=== PATIENT | female | born 1935 | race Caucasian/White ===

== ENCOUNTER 2017-02-23 12:57 | Inpatient (IN) | payer MEDICARE ==
[2017-02-23] MEDS ORDERED: Zofran 4 MG/2 ML VIAL IV PRN (14:46)
[2017-02-23] MEDS ORDERED: Sodium Chloride 0.9% 1000 ML 1,000 ML IV SCH (15:00)
[2017-02-23] MEDS: ROCEPHIN 1 Gm-D5w 50 ml Bag** 1 G/50 ML IVPB IV SCH (15:10)
[2017-02-23] MEDS: Zithromax 500 MG/ 250 ML NaCl Premix 500 MG/250 ML IVPB IV SCH (15:11)
[2017-02-23] MEDS: DUONEB 0.5-3 MG/3 ml Neb IH SCH ×3 (15:11→23:01)
[2017-02-23 15:33] LABS: BASOPHIL % 0.1 % (0.0-0.4); Eosinophil % 0.1 % (0.00-5.0); Granulocytes % 88.5 % (36.0-66.0); Lymphocytes % 5.6 % (24.0-44.0); Mean Cell Volume 87.1 fl (78-100); Mean Corpuscular Hemoglobin 27.7 pg (26-32); Mean Platelet Volume 12.9 fl (6-9.5); Monocytes % 5.7 % (0.0-12.0); Platelet Count 213 K/mm3 (150-450); Red Blood Count 4.11 M/mm3 (4.1-5.4); Red Cell Distribution Width 16.3 % (11.5-14.0)
[2017-02-23 15:35] LABS: INR 2.81 (0.8-3.0); PROTIME 31.6 SECONDS (9.95-12.35)
[2017-02-23 15:49] LABS: ALBUMIN 3.1 g/dL (3.4-5.0); ANION GAP 13.7 MEQ/L (5-15); BILIRUBIN,TOTAL 0.6 mg/dL (0.2-1.0); Carbon Dioxide 26.4 mEq/L (21-32); Total Protein 5.9 gm/dL (6.4-8.2)
--- NOTE | 2017-02-23 16:14 | XRAY ---
Indication: Fever and cough. Comparison: August 26, 2016. Portable chest again demonstrates CABG surgery with borderline cardiomegaly, central vascular prominence, and tiny left base effusion concerning for mild/early cardiac decompensation. Superimposed pneumonia not completely excluded.
[2017-02-23] MEDS: solu-MEDROL 125 MG IV SCH (17:46)
[2017-02-23] MEDS: Zocor 10MG PO SCH (21:23)
[2017-02-23] MEDS: TYLENOL 325 MG PO PRN (21:47)
[2017-02-24] MEDS: solu-MEDROL 125 MG IV SCH (02:48)
[2017-02-24] MEDS: DUONEB 0.5-3 MG/3 ml Neb IH SCH ×6 (03:01→22:55)
[2017-02-24 05:55] LABS: Mean Cell Volume 87.3 fl (78-100); Mean Corpuscular Hemoglobin 27.4 pg (26-32); Mean Platelet Volume 12.4 fl (6-9.5); Platelet Count 175 K/mm3 (150-450); Red Blood Count 3.79 M/mm3 (4.1-5.4); Red Cell Distribution Width 16.5 % (11.5-14.0); White Blood Count 10.7 K/mm3 (4.0-10.5)
[2017-02-24 06:22] LABS: ALBUMIN 2.9 g/dL (3.4-5.0); ANION GAP 16.1 MEQ/L (5-15); BILIRUBIN,TOTAL 0.3 mg/dL (0.2-1.0); Carbon Dioxide 24.3 mEq/L (21-32); Potassium 3.2 mEq/L (3.5-5.1); Total Protein 6.3 gm/dL (6.4-8.2)
[2017-02-24 06:24] LABS: INR 2.77 (0.8-3.0); PROTIME 31.1 SECONDS (9.95-12.35)
[2017-02-24 07:10] LABS: BAND 3 % (0.0-2.0); Eosinophil 1 % (0.00-3.0); Total Cells Counted 100
[2017-02-24 07:12] LABS: ANISOCYTOSIS 1+; Hypochromia 1+; Platelet Estimate NORMAL (NORMAL)
--- NOTE | 2017-02-24 08:23 | PCM.HP ---
History of Present Illness - Chief Complaint Chief Complaint: acute respiratory failure Date: 02/24/17 History of Present Illness: is a 81 year old female. who lives at [facility] and suffers from dementia, copd and has recurrent pneumonia. She was at [facility] yesterday and became acutely dyspneic and more confused fever to 101.4 and pulse ox in the low 80's on her regular O2. She was having significant wheezing no alleviated with nebulizer treatment. With her ams and rapid worsening she was sent for direct admission to the hospital last night started on antibiotics and steroids and nebs and seems to be improving this am. She is still more confused compared to baseline but denies current complaints. No chest pain or nausea. - Review of Systems Constitutional: Fatigue, No Fever, No Chills Eyes: No Symptoms Ears, Nose, & Throat: No Symptoms Respiratory: Cough, Short Of Breath Cardiac: No Chest Pain, No Edema, No Syncope Abdominal/Gastrointestinal: No Abdominal Pain, No Nausea, No Vomiting, No Diarrhea Genitourinary Symptoms: No Dysuria Musculoskeletal: No Back Pain, No Neck Pain Skin: No Rash Neurological: No Dizziness, No Focal Weakness, No Sensory Changes Psychological: No Symptoms Endocrine: No Symptoms Hematologic/Lymphatic: No Symptoms Immunological/Allergic: No Symptoms Medications & Allergies Home Medications: Home Medication List Aspirin 81 mg PO DAILY 08/26/16 [History Confirmed 02/23/17] Atorvastatin Calcium [Lipitor] 10 mg PO DAILY 08/26/16 [History Confirmed ] Calcium Carbonate [Calcium] 1,500 mg PO DAILY 08/26/16 [History Confirmed ] Ferrous Sulfate 325 mg [Feosol 325 mg] 325 mg PO DAILY 08/26/16 [History Confirmed 02/23/17] Omeprazole [Prilosec] 40 mg PO DAILY 08/26/16 [History Confirmed 02/23/17] Paroxetine HCl 20 mg PO DAILY 08/26/16 [History Confirmed 02/23/17] Polyethylene Glycol 3350 [Miralax] 17 gm PO DAILY 08/26/16 [History Confirmed ] Pyridoxine HCl 100 mg [Vitamin B-6 (Pyridoxine) 100 MG] 100 mg PO DAILY [History Confirmed 02/23/17] Warfarin Sodium 2 mg [Coumadin 2 MG] 2 mg PO DAILY #0 tablet 08/30/16 [Rx Confirmed 02/23/17] Amlodipine Besylate 2.5 mg PO DAILY 02/23/17 [History Confirmed 02/23/17] Warfarin Sodium 1 mg [Coumadin 1 MG] 1 mg PO UD 02/23/17 [History Confirmed 02/23/17] Allergies/Adverse Reactions: Allergies Allergy/AdvReac Type Severity Reaction Status Date / Time codeine Allergy Verified 02/23/17 14:40 - Past Medical History Past Medical History: Yes Neurological History: Dementia, Stroke ENT History: Cataracts Cardiac History: Arrhythmia, Hypertension Respiratory History: Pneumonia Endocrine Medical History: No Pertinent History Musculoskelatal History: No Pertinent History GI Medical History: GERD History: Renal Disease, Other Pyscho-Social History: Anxiety, Depression Reproductive Disorders: No Pertinent History Comment: Per daughter - Female History Are you now?: No - Past Surgical History Past Surgical History: No (unknown not listed in report) Neuro Surgical History: No Pertinent History Cardiac History: CABG Respiratory Surgery: No Pertinent History GI Surgical History: No Pertinent History Genitourinary Surgical Hx: No Pertinent History Musculskeletal Surgical Hx: No Pertinent History Female Surgical History: No Pertinent History Other Surgical History: Left carotid sx - Social History Smoking Status: Former smoker Exposure to second hand smoke: No Alcohol: None Drug Use: none - Physical Exam Vital Signs: Vital Signs - 24 hr Temp Pulse Resp BP Pulse Ox 02/24/17 06:43 68 18 92 L 02/24/17 04:59 96.9 F 65 20 110/54 91 L 02/24/17 04:00 16 02/24/17 03:03 82 20 92 L 02/24/17 00:31 97.7 F 65 14 111/56 96 02/24/17 00:00 18 02/23/17 23:03 88 18 95 02/23/17 20:00 98.5 F 70 18 133/60 93 L 02/23/17 19:00 78 20 94 L 02/23/17 15:14 63 22 93 L 02/23/17 14:13 98.2 F 60 20 107/53 96 02/23/17 14:04 98.2 F 60 20 107/53 98 Oxygen-Last 24 hours O2 Percentage 3 Liters = 32% O2 Percentage 2 Liters = 28% O2 Percentage 2 Liters = 28% Oxygen Flowrate (L/min)-RT 2 General Appearance: no apparent distress, alert Neurologic Exam: alert, oriented x 3, cooperative, normal mood/affect, nml cerebellar function, nml station & gait, sensation nml, No motor deficits Eye Exam: PERRL/EOMI, eyes nml inspection Ears, Nose, Throat Exam: normal ENT inspection, TMs normal, pharynx normal, moist mucous membranes Neck Exam: normal inspection, non-tender, supple, full range of motion Respiratory Exam: wheezing, No respiratory distress Cardiovascular Exam: regular rate/rhythm, normal peripheral pulses, murmur Gastrointestinal/Abdomen Exam: soft, normal bowel sounds, No tenderness, No mass Back Exam: normal inspection, normal range of motion, No CVA tenderness, No vertebral tenderness Extremity Exam: normal inspection, normal range of motion, pelvis stable Skin Exam: normal color, warm, dry, No rash Lymphatic Exam: No adenopathy Results - Labs Lab/Micro Results: Lab Results-Last 24 Hours 02/23/17 02/23/17 02/23/17 Range/Units 14:20 14:20 14:20 WBC 15.0 H (4.0-10.5) K/mm3 RBC 4.11 (4.1-5.4) M/mm3 Hgb 11.4 L (12.0-16.0) gm/dl Hct 35.8 (35-47) % MCV 87.1 (78-100) fl MCH 27.7 (26-32) pg MCHC 31.8 L (32-36) g/dl RDW 16.3 H (11.5-14.0) % Plt Count 213 (150-450) K/mm3 MPV 12.9 H (6-9.5) fl Gran % 88.5 H (36.0-66.0) % Lymphocytes % 5.6 L (24.0-44.0) % Monocytes % 5.7 (0.0-12.0) % Eosinophils % 0.1 (0.00-5.0) % Basophils % 0.1 (0.0-0.4) % Segmented Neutrophils (36.0-66.0) % Band Neutrophils (0.0-2.0) % Lymphocytes (Manual) (24-44) % Eosinophils (Manual) (0.00-3.0) % Basophils # 0.02 (0-0.4) Differential Comment Platelet Estimate (NORMAL) Hypochromasia Anisocytosis INR 2.81 (0.8-3.0) Sodium 141 (136-145) mEq/L Potassium 4.0 (3.5-5.1) mEq/L Chloride 105 (98-107) mEq/L Carbon Dioxide 26.4 (21-32) mEq/L Anion Gap 13.7 (5-15) MEQ/L BUN 23 H (9-20) mg/dL Creatinine 1.23 (0.55-1.30) mg/dl Estimated GFR 44 ML/MIN Glucose 108 (70-110) MG/DL Calcium 8.5 (8.5-10.1) mg/dL Total Bilirubin 0.60 (0.2-1.0) mg/dL AST 17 (15-37) U/L ALT 15 (12-78) U/L Alkaline Phosphatase 88 (46-116) U/L NT-Pro-B Natriuret Pep 5488 H (0-450) pg/ml Serum Total Protein 5.9 L (6.4-8.2) gm/dL Albumin 3.1 L (3.4-5.0) g/dL Prealbumin (18.0-35.7) mg/dL 02/23/17 02/24/17 02/24/17 Range/Units 16:00 05:46 05:46 WBC 10.7 H (4.0-10.5) K/mm3 RBC 3.79 L (4.1-5.4) M/mm3 Hgb 10.4 L (12.0-16.0) gm/dl Hct 33.1 L (35-47) % MCV 87.3 (78-100) fl MCH 27.4 (26-32) pg MCHC 31.4 L (32-36) g/dl RDW 16.5 H (11.5-14.0) % Plt Count 175 (150-450) K/mm3 MPV 12.4 H (6-9.5) fl Gran % (36.0-66.0) % Lymphocytes % (24.0-44.0) % Monocytes % (0.0-12.0) % Eosinophils % (0.00-5.0) % Basophils % (0.0-0.4) % Segmented Neutrophils 93 H (36.0-66.0) % Band Neutrophils 3 H (0.0-2.0) % Lymphocytes (Manual) 3 L (24-44) % Eosinophils (Manual) 1 (0.00-3.0) % Basophils # (0-0.4) Differential Comment ABNORMAL Platelet Estimate NORMAL (NORMAL) Hypochromasia 1+ Anisocytosis 1+ INR (0.8-3.0) Sodium 142 (136-145) mEq/L Potassium 3.2 L (3.5-5.1) mEq/L Chloride 105 (98-107) mEq/L Carbon Dioxide 24.3 (21-32) mEq/L Anion Gap 16.1 H (5-15) MEQ/L BUN 31 H (9-20) mg/dL Creatinine 1.46 H (0.55-1.30) mg/dl Estimated GFR 36 ML/MIN Glucose 196 H (70-110) MG/DL Calcium 8.6 (8.5-10.1) mg/dL Total Bilirubin 0.30 (0.2-1.0) mg/dL AST 15 (15-37) U/L ALT 13 (12-78) U/L Alkaline Phosphatase 77 (46-116) U/L NT-Pro-B Natriuret Pep (0-450) pg/ml Serum Total Protein 6.3 L (6.4-8.2) gm/dL Albumin 2.9 L (3.4-5.0) g/dL Prealbumin 15.4 L (18.0-35.7) mg/dL 02/24/17 Range/Units 05:46 WBC (4.0-10.5) K/mm3 RBC (4.1-5.4) M/mm3 Hgb (12.0-16.0) gm/dl Hct (35-47) % MCV (78-100) fl MCH (26-32) pg MCHC (32-36) g/dl RDW (11.5-14.0) % Plt Count (150-450) K/mm3 MPV (6-9.5) fl Gran % (36.0-66.0) % Lymphocytes % (24.0-44.0) % Monocytes % (0.0-12.0) % Eosinophils % (0.00-5.0) % Basophils % (0.0-0.4) % Segmented Neutrophils (36.0-66.0) % Band Neutrophils (0.0-2.0) % Lymphocytes (Manual) (24-44) % Eosinophils (Manual) (0.00-3.0) % Basophils # (0-0.4) Differential Comment Platelet Estimate (NORMAL) Hypochromasia Anisocytosis INR 2.77 (0.8-3.0) Sodium (136-145) mEq/L Potassium (3.5-5.1) mEq/L Chloride (98-107) mEq/L Carbon Dioxide (21-32) mEq/L Anion Gap (5-15) MEQ/L BUN (9-20) mg/dL Creatinine (0.55-1.30) mg/dl Estimated GFR ML/MIN Glucose (70-110) MG/DL Calcium (8.5-10.1) mg/dL Total Bilirubin (0.2-1.0) mg/dL AST (15-37) U/L ALT (12-78) U/L Alkaline Phosphatase (46-116) U/L NT-Pro-B Natriuret Pep (0-450) pg/ml Serum Total Protein (6.4-8.2) gm/dL Albumin (3.4-5.0) g/dL Prealbumin (18.0-35.7) mg/dL - Radiology Impressions Radiology Exams & Impressions: Radiology Procedures Category Date Time Status CHEST 1 VIEW (PORTABLE) Stat Exams 02/23/17 14:46 Completed - Other Procedures and Tests Respiratory Therapy 02/23/17 14:46 Oxygen NASAL CANNULA 2 lpm 02/23/17 15:00 Respiratory Nebulizer Q4H Assessment/Plan (1) COPD exacerbation Current Visit: Yes Status: Acute Assessment & Plan: cxr was clear fever improved mental status improving continue antibiotics was on iv solumedrol wheezing improved today will wean to po prednisone if continues to improve hopeful for back Hernandez's tomorrow on steroid taper Code(s): J44.1 - CHRONIC OBSTRUCTIVE PULMONARY DISEASE W (ACUTE) EXACERBATION (2) Hypertension Current Visit: Yes Status: Chronic Code(s): I10 - ESSENTIAL (PRIMARY) HYPERTENSION (3) CKD (chronic kidney disease) Current Visit: Yes Status: Chronic Code(s): N18.9 - CHRONIC KIDNEY DISEASE, UNSPECIFIED (4) Anemia Current Visit: Yes Status: Chronic Code(s): D64.9 - ANEMIA, UNSPECIFIED (5) Anxiety Current Visit: Yes Status: Chronic Code(s): F41.9 - ANXIETY DISORDER, UNSPECIFIED (6) Coronary arteriosclerosis Current Visit: Yes Status: Chronic (7) Chronic atrial fibrillation Current Visit: Yes Status: Chronic Code(s): I48.2 - CHRONIC ATRIAL FIBRILLATION (8) Hypokalemia Current Visit: Yes Status: Acute Assessment & Plan: replace recheck in am Code(s): E87.6 - HYPOKALEMIA
[2017-02-24] MEDS: ROCEPHIN 1 Gm-D5w 50 ml Bag** 1 G/50 ML IVPB IV SCH (08:55)
[2017-02-24] MEDS: ECOTRIN 81 MG PO SCH (08:58)
[2017-02-24] MEDS: Paxil 20 MG PO SCH (08:58)
[2017-02-24] MEDS: Protonix 40MG Tablet PO SCH (08:58)
[2017-02-24] MEDS: DELTASONE 20 MG PO SCH (08:58)
[2017-02-24] MEDS: Vitamin B-6 (Pyridoxine) 100 MG PO SCH (08:58)
[2017-02-24] MEDS: Calcium 500MG W/Vit D Tablet PO SCH (08:58)
[2017-02-24] MEDS: FEOSOL 325 MG PO SCH (08:58)
[2017-02-24] MEDS: Miralax Powder 17GM PACKET PO SCH (08:59)
[2017-02-24] MEDS: Zithromax 500 MG/ 250 ML NaCl Premix 500 MG/250 ML IVPB IV SCH (09:43)
[2017-02-24] MEDS ORDERED: NON-FORMULARY ITEM (Atorvastatin Calcium [Lipitor] 10 MG) PO SCH (10:00)
[2017-02-24] MEDS ORDERED: NON-FORMULARY ITEM (Omeprazole [Prilosec] 40 MG) PO SCH (10:00)
[2017-02-24] MEDS ORDERED: NON-FORMULARY ITEM (Aspirin [Aspirin] 81 MG) PO SCH (10:00)
[2017-02-24] MEDS ORDERED: CALCIUM CARBONATE 1500 MG PO SCH (10:00)
[2017-02-24] MEDS ORDERED: Sodium Chloride 0.9% 1000 ML 1,000 ML ONE (13:13)
[2017-02-24] MEDS: POTASSIUM CHLORIDE 20 mEq IN WATER 100ML 20 MEQ/100 ML BAG IV SCH ×2 (13:18→15:31)
[2017-02-24] MEDS ORDERED: Coumadin 1 MG PO SCH (18:00)
[2017-02-24] MEDS: Zocor 10MG PO SCH (21:51)
[2017-02-24] MEDS: TYLENOL 325 MG PO PRN (21:52)
[2017-02-25] MEDS: DUONEB 0.5-3 MG/3 ml Neb IH SCH ×3 (03:03→11:15)
[2017-02-25] MEDS: TYLENOL 325 MG PO PRN (03:23)
[2017-02-25 06:14] LABS: Mean Cell Volume 86.9 fl (78-100); Mean Platelet Volume 12.4 fl (6-9.5); Platelet Count 201 K/mm3 (150-450); Red Blood Count 3.59 M/mm3 (4.1-5.4); Red Cell Distribution Width 16.8 % (11.5-14.0); White Blood Count 18.8 K/mm3 (4.0-10.5)
[2017-02-25 06:17] LABS: Mean Corpuscular Hemoglobin 27.5 pg (26-32)
[2017-02-25 06:38] LABS: INR 2.5 (0.8-3.0); PROTIME 28.1 SECONDS (9.95-12.35)
[2017-02-25 06:58] LABS: ANION GAP 14.8 MEQ/L (5-15); Carbon Dioxide 24.7 mEq/L (21-32)
--- NOTE | 2017-02-25 08:38 | PCM.DCORD ---
- Discharge Discharge Date: 02/25/17 Disposition: DC TO [facility] Prescriptions: New Amoxicillin/Potassium Clav [Augmentin 875 mg (Amox Tr-K Clv 875-125 mg)] 1 each PO BID 7 Days #14 tablet Prednisone 20 mg [Deltasone 20 mg] 40 mg PO DAILY 12 Days tablet Continue Aspirin 81 mg PO DAILY Pyridoxine HCl 100 mg [Vitamin B-6 (Pyridoxine) 100 MG] 100 mg PO DAILY Paroxetine HCl 20 mg PO DAILY Omeprazole [Prilosec] 40 mg PO DAILY Polyethylene Glycol 3350 [Miralax] 17 gm PO DAILY Atorvastatin Calcium [Lipitor] 10 mg PO DAILY Ferrous Sulfate 325 mg [Feosol 325 mg] 325 mg PO DAILY Calcium Carbonate [Calcium] 1,500 mg PO DAILY Warfarin Sodium 2 mg [Coumadin 2 MG] 2 mg PO DAILY #0 tablet Amlodipine Besylate 2.5 mg PO DAILY Warfarin Sodium 1 mg [Coumadin 1 MG] 1 mg PO UD Follow up with: TOMASZ ORELLANA [Primary Care Provider] - 1 Week
[2017-02-25] MEDS: DELTASONE 20 MG PO SCH (09:28)
[2017-02-25] MEDS: Calcium 500MG W/Vit D Tablet PO SCH (09:29)
[2017-02-25] MEDS: Paxil 20 MG PO SCH (09:29)
[2017-02-25] MEDS: ECOTRIN 81 MG PO SCH (09:30)
[2017-02-25] MEDS: Miralax Powder 17GM PACKET PO SCH (09:30)
[2017-02-25] MEDS: FEOSOL 325 MG PO SCH (09:30)
[2017-02-25] MEDS: Vitamin B-6 (Pyridoxine) 100 MG PO SCH (09:30)
[2017-02-25] MEDS: Protonix 40MG Tablet PO SCH (09:31)
[2017-02-25] MEDS: ROCEPHIN 1 Gm-D5w 50 ml Bag** 1 G/50 ML IVPB IV SCH (09:31)
[2017-02-25] MEDS: Zithromax 500 MG/ 250 ML NaCl Premix 500 MG/250 ML IVPB IV SCH (10:20)
[2017-02-25 12:03] VITALS: BP 149/69; PULSE 89; O2SAT 95
--- NOTE | 2017-02-27 11:05 | DS ---
DISCHARGE DIAGNOSES1) BRONCHITIS. 2) RESPIRATORY FAILURE. HISTORY: The patient is an 81 year-old white female resident of a local skilled nursing who had fever and increased shortness of breath. She was admitted from [facility] to the hospital for treatment for possible pneumonia. HOSPITAL COURSE: The patient was admitted to the hospital on IV Solu-Medrol, Rocephin and Zithromax. The patient's chest x-ray could not rule out superimposed pneumonia. The patient seemed to improve on the above treatment. Her pulse oximetry have remained in the mid 90's. She is currently sitting up in bed taking breakfast. She appears to be comfortable. She is somewhat confused however. She is afebrile with stable vital signs. Otherwise her chest is essentially clear presently. The patient's laboratory studies at the present time show her international normalized ratio to be therapeutic. Her cultures thus far have been negative. She had elevation of her white blood cell count at 18,000 however this was felt to be secondary to her steroid treatments. Her blood sugar this morning was 136, BUN 39, creatinine 1.38. Her electrolytes were otherwise normal. Her white blood cell count previously was 18,800. Her hemoglobin was 9.9, PLT count 201,000. The patient had been changed from IV Solu-Medrol to prednisone on 02/24/2017. We will discharge her today to continue the prednisone for three more days at 40 mg and then three days at 30 mg and three days of 20 mg and three days of 10 mg. We will send her home on Augmentin 875 mg b.i.d. for possibility of bacterial infection although this likely is viral event. The patient will be discharged on her usual skilled nursing medications otherwise with also supplemental oxygen.
== END 2017-02-25 13:30 | DRG 202 ==
LOC: MED SURG 14:00
PROVIDERS: ADMIT Family Medicine; ATTEND Family Medicine
DX: J40 Bronchitis, not specified as acute or chronic (principal); J96.90 Respiratory failure, unspecified, unspecified whether with hypoxia or hypercapnia; J44.1 Chronic obstructive pulmonary disease with (acute) exacerbation; I10 Essential (primary) hypertension; Z87.01 Personal history of pneumonia (recurrent); Z95.1 Presence of aortocoronary bypass graft; N18.9 Chronic kidney disease, unspecified; D64.9 Anemia, unspecified; F41.9 Anxiety disorder, unspecified; I25.10 Atherosclerotic heart disease of native coronary artery without angina pectoris; I48.2 Chronic atrial fibrillation; E87.6 Hypokalemia
CPT/HCPCS: 36415; 71010; 80048; 80053; 83880; 84132; 84134; 85025; 85027; 85610; 87040; 87070; 93005; 94640; 94760; J0456; J0696; J2930; J3480; A9270-GY; J7506